=== PATIENT | female | born 1985 | race Caucasian/White ===

== ENCOUNTER 2018-07-04 11:34 | Outpatient (CLI) | payer OTHER ==
--- NOTE | 2018-07-04 13:12 | RAD ---
TWO VIEWS LEFT HIP: Indication: Pain. FINDINGS: There is no fracture or dislocation of the left hip. No significant arthropathy. IMPRESSION: No acute osseous abnormality of the left hip. POS: [facility]
== END 2018-07-04 11:35 | disposition home or self-care (01) ==
LOC: SCSRAD 11:34
PROVIDERS: ATTEND Nurse Practitioner Family
DX: M25.552 Pain in left hip (principal)